=== PATIENT | male | born 1955 | race Caucasian/White ===

== ENCOUNTER 2017-11-25 10:28 | Emergency (ER) | payer OTHER, SELFPAY ==
[2017-11-25] MEDS ORDERED: methylPREDNISolone Sod Succ/PF 125 MG/2 ML VIAL ONE (10:51)
[2017-11-25] MEDS ORDERED: diphenhydrAMINE 50 MG/ML VIAL ONE (10:51)
[2017-11-25] MEDS ORDERED: EPINEPHrine 1 MG/ML AMP ONE (10:51)
[2017-11-25] MEDS ORDERED: Famotidine In NaCl 20 mg/50 ml Premix Bag ONE (10:51)
[2017-11-25] MEDS ORDERED: Sodium Chloride 0.9% 1,000 ML BAG ONE (12:45)
== END 2017-11-25 11:56 | disposition home or self-care (01) ==
LOC: MADERS 10:28
DX: R21 Rash and other nonspecific skin eruption (principal); T36.3X5A Adverse effect of macrolides, initial encounter; F17.210 Nicotine dependence, cigarettes, uncomplicated; F41.9 Anxiety disorder, unspecified; Z79.899 Other long term (current) drug therapy
CPT/HCPCS: 96365; 96372; 96375; J0171; J1200; J2930; J7050